=== PATIENT | female | born 1950 | race Caucasian/White ===

== ENCOUNTER 2018-11-21 09:04 | Observation (INO) | payer MEDICARE ==
--- NOTE | 2018-11-20 09:57 | Diagnostic Imaging Report ---
EXAMINATION: CHEST 2 VIEWS INDICATION: Pre-operative COMPARISON: None FINDINGS: LINES/TUBES:None LUNGS:The lungs are well-inflated. No focal consolidation or pulmonary edema. PLEURA:No pleural effusion or pneumothorax. MEDIASTINUM:The cardiomediastinal silhouette appears normal in size and shape. Atherosclerotic calcifications of the thoracic aorta. BONES/SOFT TISSUES:No acute osseous injury. ABDOMEN:No free air under the diaphragm. IMPRESSION: No focal pneumonia or pulmonary edema. Signed by: Puneet Perez MD on 11/20/2018 9:54 AM
[~2018-11-21] VITALS: Ht 157.5 cm; Wt 78.5 kg
[~2018-11-21 09:04] MED LIST: ASPIR 8181 MG PO; ATORVASTATIN CA10 MG PO; AZILECT0.5 MG PO; CARBIDOPA-LEVO1 EACH PO; FLUTICASONE PRO16 GM; GABAPENTIN300 MG PO; LEVETIRACETAM500 MG PO; MELATONIN3 M1 PO; MULTIVITAMINS1 EAC7 PO; OMEPRAZOLE20 MG PO; PROLIA60 MG/1 ML SQ; ROPIVACAINE 246.25 MG, EPINEPHRINE HCL 1:1000 1ML 0.5 MG, CLONIDINE HCL 0.08 MG, KETORO... INJ ONE; TYLENOL ARTHRITIS PO
--- OUTSIDE RECORDS SUMMARY | 2018-11-21 09:07 | XMS REPORT | Continuity of Care Document ---
Author Author [employer] Organization [employer] Address Unknown Phone Unavailable Care Team Providers Care Family Medicine Resident Name Role Phone [employer] Information [facility] Unavailable Unavailable Problems Problem Status Onset Date Classification Date Reported Comments Source VOMITING Active 11/27/2011 [facility] DIZZINESS Active 11/27/2011 [facility] Seizure Active Problem 12/02/2011 [facility] Syncope Active Problem 12/02/2011 [facility] Hallux valgus (acquired), right foot Active Problem 05/11/2017 [facility] Seizure disorder Active Problem 05/11/2017 [facility] Plantar fasciitis Active Problem 05/11/2017 [facility] DIZZINESS AND GIDDINESS Active [facility] Medications Medication Details Route Status Patient Instructions Ordering Provider Order Date Source Keppra 250 mg oral tablet 500 mg, 2 tab, PO, Bedtime, 30 tab, Substitution Allowed, TAB PO Active Mougouris 11/30/2011 [facility] Keppra 250 mg oral tablet 250 mg, 1 tab, PO, QAM, 30 tab, Substitution Allowed, TAB PO Active Mougouris 11/30/2011 [facility] Prilosec OTC 20 mg, Route: PO, Drug form: ECTAB, Daily, Dosing Weight 75.909, kg, Start date: 11/29/11 9:00:00, Duration: 30 day, Stop date: 12/28/11 9:00:00 PO No Longer Active Roas 11/29/2011 [facility] multivitamin with minerals 1 tab, Route: PO, Drug Form: TAB, Dosing Weight 75.909, kg, Daily, Start date: 11/29/11 9:00:00, Duration: 30 day, Stop date: 12/28/11 9:00:00 PO No Longer Active Rosa 11/29/2011 [facility] Vitamin B12 500 microgram, 1 tab, Route: PO, Drug form: TAB, Daily, Dosing Weight 75.909, kg, Start date: 11/29/11 9:00:00, Duration: 30 day, Stop date: 12/28/11 9:00:00 PO No Longer Active Rosa 11/29/2011 [facility] Vitamin D3 1000 intl units oral tablet 1 tab, Route: PO, Drug form: TAB, Daily, Dosing Weight 75.909, kg, Start date: 11/29/11 9:00:00, Duration: 30 day, Stop date: 12/28/11 9:00:00 PO No Longer Active Rosa 11/29/2011 [facility] aspirin 325 mg tablet, enteric coated 325 mg, 1 tab, Route: PO, Drug form: ECTAB, Daily, Dosing Weight 75.909, kg, Start date: 11/29/11 9:00:00, Duration: 30 day, Stop date: 12/28/11 9:00:00 PO No Longer Active Rosa 11/29/2011 [facility] Keppra 250 mg, 1 tab, Route: PO, Drug form: TAB, QAM, Start date: 11/29/11 9:00:00, Duration: 30 day, Stop date: 12/28/11 9:00:00 PO No Longer Active Batsheva 11/29/2011 [facility] Vitamin D3 1,000 IntlUnit, 1 tab, Route: PO, Drug form: TAB, Daily, Start date: 11/29/11 9:00:00, Duration: 30 day, Stop date: 12/28/11 9:00:00 PO No Longer Active Rosa 11/29/2011 [facility] melatonin 3 mg, Route: PO, Drug form: TAB, Bedtime, Dosing Weight 75.909, kg, Start date: 11/28/11 21:00:00, Duration: 30 day, Stop date: 12/27/11 21:00:00 PO No Longer Active Rosa 11/29/2011 [facility] Keppra 500 mg, 2 tab, Route: PO, Drug form: TAB, Bedtime, Start date: 11/28/11 21:00:00, Duration: 30 day, Stop date: 12/27/11 21:00:00 PO No Longer Active Batsheva 11/29/2011 [facility] MELATONIN 3MG PO BEDTIME-PT'S OWN MED MELATONIN 3MG PO BEDTIME-PT'S OWN MED, 3 mg, Drug form: MISC, Route: PO, Bedtime, 11/28/11 21:00:00, Duration: 30 day, Stop date: 12/27/11 21:00:00 PO No Longer Active Rosa 11/29/2011 [facility] acetaminophen 650 mg, 2 tab, Route: PO, Drug form: TAB, Q6H, Dosing Weight 75.909, kg, PRN Pain, Start date: 11/28/11 18:28:00, Duration: 30 day, Stop date: 12/28/11 18:27:00 PO No Longer Active Mougouris 11/28/2011 [facility] Protonix 40 mg, 1 tab, Route: PO, Drug form: ECTAB, Before Dinner, Start date: 11/28/11 16:30:00, Duration: 30 day, Stop date: 12/27/11 16:30:00 PO No Longer Active Rosa 11/28/2011 [facility] influenza virus vaccine, inactivated 0.5 ml, Route: IM, Drug Form: INJ, Start date: 11/28/11 9:00:00, Stop date: 11/28/11 9:00:00 IM No Longer Active SYSTEM 11/28/2011 [facility] atropine 0.5 mg, 1.25 mL, Route: IVP, Drug form: INJ, PRN, Dosing Weight 72.727, kg, PRN Bradycardia, Start date: 11/27/11 22:14:00, Duration: 30 day, Stop date: 12/27/11 22:13:00 IVP No Longer Active Batsheva 11/28/2011 [facility] nitroglycerin 0.4 mg sublingual tablet 0.4 mg, 1 tab, Route: SL, Drug form: TAB, Q5Min, Dosing Weight 72.727, kg, PRN Chest Pain, Start date: 11/27/11 22:14:00, Duration: 30 day, Stop date: 12/27/11 22:13:00 SL No Longer Active Batsheva 11/28/2011 [facility] Saline Flush 0.9% 5 ml, Route: IVP, Drug Form: INJ, Dosing Weight 72.727, kg, PRN, PRN Line Flush, Start date: 11/27/11 21:14:00, Duration: 30 day, Stop date: 12/27/11 21:13:00 IVP No Longer Active Batsheva 11/28/2011 [facility] Sodium Chloride 0.9% IV 1,000 mL 1,000 mL, Rate: 75 ml/hr, Infuse over: 13.3 hr, Route: IV, kg, Total Volume: 1,000, Start date: 11/27/11 21:14:00, Duration: 30 day, Stop date: 12/27/11 21:13:00 IV No Longer Active Batsheva 11/28/2011 [facility] LORAzepam 1 mg, 0.5 mL, Route: IV, Drug form: INJ, Q15Min, Dosing Weight 72.727, kg, PRN Seizure, Start date: 11/27/11 21:14:00, Duration: 30 day, Stop date: 12/27/11 21:13:00 IV No Longer Active Batsheva 11/28/2011 [facility] Zofran 4 mg, 2 mL, Route: IVP, Drug form: INJ, ONCE, Dosing Weight 72.727, kg, Start date: 11/27/11 19:12:00, Stop date: 11/27/11 19:12:00 [facility] melatonin 3 mg oral tablet 3 mg, 1 tab, PO, Bedtime, Substitution Allowed PO Active Rosa 11/27/2011 [facility] vitamin E 400 intl units oral capsule 400 IntlUnit, 1 cap, PO, Daily, Substitution Allowed PO Active 11/27/2011 [facility] Vitamin D3 400 intl units oral capsule 400 IntlUnit, 1 cap, PO, Daily, Substitution Allowed PO Active Rosa 11/27/2011 [facility] Vitamin B12 500 mcg oral tablet 500 microgram, 1 tab, PO, Daily, Substitution Allowed PO Active Rosa 11/27/2011 [facility] Multiple Vitamins with Minerals oral tablet 1 tab, PO, Daily, Substitution Allowed, Maintenance PO Active Rosa 11/27/2011 [facility] aspirin 325 mg tablet, enteric coated 325 mg, 1 tab, PO, Daily, Substitution Allowed PO Active Rosa 11/27/2011 [facility] Prilosec OTC 20 mg oral enteric coated tablet 20 mg, 1 tab, PO, Daily, Substitution Allowed PO Active Rosa 11/27/2011 [facility] LORAzepam 1 mg, 0.5 mL, Route: IVP, Drug form: INJ, ONCE, Dosing Weight 72.727, kg, Priority: STAT, Start date: 11/27/11 15:06:00, Stop date: 11/27/11 15:06:00 IVP No Longer Active [facility] 11/27/2011 [facility] ondansetron 4 mg, 2 mL, Route: IVP, Drug form: INJ, ONCE, Dosing Weight 72.727, kg, Priority: STAT, Start date: 11/27/11 15:06:00, Stop date: 11/27/11 15:06:00 IVP No Longer Active [facility] 11/27/2011 [facility] Sodium Chloride 0.9% IV 1,000 mL 1,000 mL, Rate: 125 ml/hr, Infuse over: 8 hr, Route: IV, kg, Total Volume: 1,000, Start date: 11/27/11 15:06:00, Duration: 30 day, Stop date: 12/27/11 15:05:00 IV No Longer Active [facility] 11/27/2011 [facility] Saline Flush 0.9% 5 ml, Route: IVP, Drug Form: INJ, Dosing Weight 72.727, kg, PRN, PRN Line Flush, Start date: 11/27/11 15:06:00, Duration: 30 day, Stop date: 12/27/11 15:05:00 IVP No Longer Active [facility] 11/27/2011 [facility] Allergies, Adverse Reactions, Alerts Substance Category Reaction Severity Reaction type Status Date Reported Comments Source codeine drug allergy Allergy Active [facility] Immunizations Immunization Date Given Site Status Last Updated Comments Source influenza virus vaccine, inactivated 11/28/2011 completed Russ [facility] Results Order Name Results Value Reference Range Date Interpretation Comments Source CHEMISTRY AGAP 11.8 10.0 - 20.0 11/30/2011 Normal [facility] CHEMISTRY Glucose Lvl 90 70 - 99 11/30/2011 Normal <sup>1</sup>Interpretive Data: Adult reference range values reflect the clinical guidelines
of the [place] [employer]. [facility] CHEMISTRY CO2 27 24 - 32 11/30/2011 Normal [facility] CHEMISTRY Calcium Lvl 8.6 8.5 - 10.5 11/30/2011 Normal [facility] CHEMISTRY Chloride Lvl 109 95 - 109 11/30/2011 Normal [facility] CHEMISTRY Potassium Lvl 3.8 3.5 - 5.1 11/30/2011 Normal [facility] CHEMISTRY Sodium Lvl 144 135 - 145 11/30/2011 Normal [facility] CHEMISTRY BUN 8 7 - 22 11/30/2011 [facility] CHEMISTRY Creatinine Lvl 0.7 0.5 - 1.4 11/30/2011 [facility] HEMATOLOGY Eosinophils 1.7 0.0 - 4.0 11/30/2011 [facility] HEMATOLOGY Basophils 1.1 0.0 - 1.0 11/30/2011 [facility] HEMATOLOGY Lymphocytes # 1.2 1.0 - 5.5 11/30/2011 Normal [facility] HEMATOLOGY Segs-Bands # 3.5 1.5 - 8.1 11/30/2011 [facility] HEMATOLOGY Lymphocytes 22.4 20.0 - 40.0 11/30/2011 [facility] HEMATOLOGY Monocytes 8.1 2.0 - 12.0 11/30/2011 [facility] HEMATOLOGY Segs 66.7 45.0 - 75.0 11/30/2011 [facility] HEMATOLOGY Eosinophils # 0.1 0.0 - 0.5 11/30/2011 [facility] HEMATOLOGY Basophils # 0.1 0.0 - 0.2 11/30/2011 [facility] HEMATOLOGY Monocytes # 0.4 0.0 - 0.8 11/30/2011 [facility] HEMATOLOGY MCHC 33.6 32.0 - 36.0 11/30/2011 [facility] HEMATOLOGY RDW 13.3 11.5 - 14.5 11/30/2011 [facility] HEMATOLOGY MCH 29.7 27.0 - 31.0 11/30/2011 [facility] HEMATOLOGY Platelet 221 133 - 450 11/30/2011 [facility] HEMATOLOGY MPV 8.0 7.4 - 10.4 11/30/2011 [facility] HEMATOLOGY MCV 88.6 81.0 - 99.0 11/30/2011 [facility] HEMATOLOGY Hgb 12.3 12.0 - 16.0 11/30/2011 [facility] HEMATOLOGY Hct 36.7 36.0 - 48.0 11/30/2011 [facility] HEMATOLOGY RBC 4.14 4.20 - 5.40 11/30/2011 L[facility] HEMATOLOGY WBC 5.3 3.7 - 10.4 11/30/2011 [facility] CHEMISTRY Magnesium Lvl 1.9 1.8 - 2.4 11/29/2011 [facility] CHEMISTRY AGAP 13.9 10.0 - 20.0 11/29/2011 [facility] CHEMISTRY BUN 10 7 - 22 11/29/2011 Normal [facility] CHEMISTRY Calcium Lvl 8.0 8.5 - 10.5 11/29/2011 LOW [facility] CHEMISTRY Creatinine Lvl 0.7 0.5 - 1.4 11/29/2011 Normal [facility] CHEMISTRY Sodium Lvl 147 135 - 145 11/29/2011 HI [facility] CHEMISTRY Potassium Lvl 3.9 3.5 - 5.1 11/29/2011 Normal [facility] CHEMISTRY Glucose Lvl 94 70 - 99 11/29/2011 Normal <sup>2</sup>Interpretive Data: Adult reference range values reflect the clinical guidelines
of the [place] [employer]. [facility] CHEMISTRY Chloride Lvl 112 95 - 109 11/29/2011 [facility] CHEMISTRY CO2 25 24 - 32 11/29/2011 Normal [facility] HEMATOLOGY MCHC 33.9 32.0 - 36.0 11/29/2011 Normal [facility] HEMATOLOGY Platelet 216 133 - 450 11/29/2011 Normal [facility] HEMATOLOGY RDW 13.3 11.5 - 14.5 11/29/2011 Normal [facility] HEMATOLOGY MPV 8.3 7.4 - 10.4 11/29/2011 Normal [facility] HEMATOLOGY Hct 36.0 36.0 - 48.0 11/29/2011 Normal [facility] HEMATOLOGY MCH 29.8 27.0 - 31.0 11/29/2011 Normal [facility] HEMATOLOGY MCV 88.1 81.0 - 99.0 11/29/2011 Normal [facility] HEMATOLOGY Hgb 12.2 12.0 - 16.0 11/29/2011 Normal [facility] HEMATOLOGY RBC 4.09 4.20 - 5.40 11/29/2011 LOW [facility] HEMATOLOGY WBC 5.6 3.7 - 10.4 11/29/2011 Normal [facility] HEMATOLOGY Lymphocytes 26.2 20.0 - 40.0 11/29/2011 Normal [facility] HEMATOLOGY Segs 64.6 45.0 - 75.0 11/29/2011 Normal [facility] HEMATOLOGY Basophils # 0.1 0.0 - 0.2 11/29/2011 Normal [facility] HEMATOLOGY Monocytes 7.5 2.0 - 12.0 11/29/2011 Normal [facility] HEMATOLOGY Eosinophils 0.6 0.0 - 4.0 11/29/2011 Normal [facility] HEMATOLOGY Basophils 1.1 0.0 - 1.0 11/29/2011 [facility] HEMATOLOGY Lymphocytes # 1.5 1.0 - 5.5 11/29/2011 Normal [facility] HEMATOLOGY Segs-Bands # 3.6 1.5 - 8.1 11/29/2011 Normal [facility] HEMATOLOGY Eosinophils # 0.0 0.0 - 0.5 11/29/2011 Normal [facility] HEMATOLOGY Monocytes # 0.4 0.0 - 0.8 11/29/2011 Normal [facility] CHEMISTRY TSH 0.387 0.360 - 3.740 11/28/2011 Normal [facility] CHEMISTRY Folate Lvl 19.5 >=3.0 11/28/2011 Normal [facility] CHEMISTRY Vitamin B12 Lvl 1636 254 - 1320 11/28/2011 [facility] URINALYSIS UA Bacteria Many /HPF *ABN* (11/27/2011 18:00:00) None Seen 11/27/2011 ABN [facility] URINALYSIS UA Mucus Few /LPF *NA* (11/27/2011 18:00:00) None Seen 11/27/2011 NA [facility] URINALYSIS UA Leuk Est Negative (11/27/2011 18:00:00) Negative 11/27/2011 Normal [facility] URINALYSIS UA RBC 6 0 - 2 11/27/2011 HI [facility] URINALYSIS UA Blood Negative (11/27/2011 18:00:00) Negative 11/27/2011 Normal [facility] URINALYSIS UA Nitrite Negative (11/27/2011 18:00:00) Negative 11/27/2011 Normal [facility] URINALYSIS UA Ketones Trace mg/dL *ABN* (11/27/2011 18:00:00) Negative 11/27/2011 ABN [facility] URINALYSIS UA Bili Negative *NA* (11/27/2011 18:00:00) Negative 11/27/2011 [facility] URINALYSIS UA Glucose Negative mg/dL *NA* (11/27/2011 18:00:00) Negative 11/27/2011 NA [facility] URINALYSIS UA Urobilinogen 0.1 - 1.0 11/27/2011 [facility] URINALYSIS UA Sq Epi None Seen 11/27/2011 [facility] URINALYSIS UA pH 7.0 5.0 - 8.0 11/27/2011 [facility] URINALYSIS UA Protein Negative mg/dL (11/27/2011 18:00:00) Negative 11/27/2011 Normal [facility] URINALYSIS UA Turbidity Marked *ABN* (11/27/2011 18:00:00) Clear 11/27/2011 AB[facility] URINALYSIS UA Spec Grav 1.009 <=1.030 11/27/2011 [facility] URINALYSIS UA Color Yellow *NA* (11/27/2011 18:00:00) Yellow 11/27/2011 NA [facility] CHEMISTRY CK MB Index 2.3 0.0 - 2.5 11/27/2011 [facility] CHEMISTRY Chloride Lvl 108 95 - 109 11/27/2011 [facility] CHEMISTRY Calcium Lvl 8.9 8.5 - 10.5 11/27/2011 [facility] CHEMISTRY Potassium Lvl 4.1 3.5 - 5.1 11/27/2011 [facility] CHEMISTRY Sodium Lvl 142 135 - 145 11/27/2011 [facility] CHEMISTRY Globulin 3.3 2.0 - 4.0 11/27/2011 [facility] CHEMISTRY A/G Ratio 1.2 0.7 - 1.6 11/27/2011 [facility] CHEMISTRY B/C Ratio 31 6 - 25 11/27/2011 [facility] CHEMISTRY Bili Total 0.4 0.2 - 1.3 11/27/2011 Normal [facility] CHEMISTRY Alk Phos 70 39 - 136 11/27/2011 Normal [facility] CHEMISTRY AGAP 11.1 10.0 - 20.0 11/27/2011 [facility] CHEMISTRY AST 11 0 - 37 11/27/2011 Normal [facility] CHEMISTRY ALT 24 0 - 65 11/27/2011 Normal [facility] CHEMISTRY Albumin Lvl 4.0 3.5 - 5.0 11/27/2011 Normal [facility] CHEMISTRY Total Protein 7.3 6.4 - 8.4 11/27/2011 [facility] CHEMISTRY CO2 27 24 - 32 11/27/2011 Normal [facility] CHEMISTRY BUN 22 7 - 22 11/27/2011 Normal [facility] CHEMISTRY Creatinine Lvl 0.7 0.5 - 1.4 11/27/2011 Normal [facility] CHEMISTRY Glucose Lvl 129 70 - 99 11/27/2011 [facility] <sup>3</sup>Interpretive Data: Adult reference range values reflect the clinical guidelines
of the [place] [employer]. [facility] CHEMISTRY CK MB 0.9 0.5 - 3.6 11/27/2011 Normal [facility] CHEMISTRY Troponin-I <0.02 0.00 - 0.40 11/27/2011 Normal [facility] CHEMISTRY Total CK 39 12 - 191 11/27/2011 Normal [facility] HEMATOLOGY Monocytes 1.4 2.0 - 12.0 11/27/2011 [facility] HEMATOLOGY Eosinophils 0.0 0.0 - 4.0 11/27/2011 Normal [facility] HEMATOLOGY Lymphocytes 4.1 20.0 - 40.0 11/27/2011 LOW [facility] HEMATOLOGY Basophils 0.0 0.0 - 1.0 11/27/2011 Normal [facility] HEMATOLOGY Segs 94.5 45.0 - 75.0 11/27/2011 [facility] HEMATOLOGY Segs-Bands # 8.8 1.5 - 8.1 11/27/2011 [facility] HEMATOLOGY Lymphocytes # 0.4 1.0 - 5.5 11/27/2011 L[facility] HEMATOLOGY Basophils # 0.0 0.0 - 0.2 11/27/2011 Normal [facility] HEMATOLOGY Eosinophils # 0.0 0.0 - 0.5 11/27/2011 Normal [facility] HEMATOLOGY Monocytes # 0.1 0.0 - 0.8 11/27/2011 Normal [facility] HEMATOLOGY WBC 9.4 3.7 - 10.4 11/27/2011 Normal [facility] HEMATOLOGY MCH 29.8 27.0 - 31.0 11/27/2011 Normal [facility] HEMATOLOGY RDW 13.5 11.5 - 14.5 11/27/2011 Normal [facility] HEMATOLOGY MCHC 33.6 32.0 - 36.0 11/27/2011 Normal [facility] HEMATOLOGY MPV 7.9 7.4 - 10.4 11/27/2011 Normal [facility] HEMATOLOGY Platelet 245 133 - 450 11/27/2011 Normal [facility] HEMATOLOGY Hgb 13.6 12.0 - 16.0 11/27/2011 Normal [facility] HEMATOLOGY RBC 4.58 4.20 - 5.40 11/27/2011 Normal [facility] HEMATOLOGY MCV 88.6 81.0 - 99.0 11/27/2011 Normal [facility] HEMATOLOGY Hct 40.6 36.0 - 48.0 11/27/2011 Normal [facility] HEMATOLOGY PTT 25.6 22.9 - 35.8 11/27/2011 Normal <sup>5</sup>Interpretive Data: Heparin Therapeutic Range: 57 - 92 Seconds [facility] HEMATOLOGY PT 12.3 12.0 - 14.7 11/27/2011 Normal [facility] HEMATOLOGY INR 0.89 0.85 - 1.17 11/27/2011 Normal <sup>4</sup>Interpretive Data: RECOMMENDED RANGES FOR PROTIME INR:
2.0-3.0 for most medical and surgical thromboembolic states.
2.5-3.5 for artificial heart valves and recurrent embolism.

INR SHOULD BE USED ONLY FOR PATIENTS ON STABLE ANTICOAGULANT THERAPY. [facility] Pathology Reports No Data Provided for This Section Diagnostic Reports No Data Provided for This Section Consultation Notes No Data Provided for This Section Discharge Summaries No Data Provided for This Section History and Physicals No Data Provided for This Section Vital Signs Vital Sign Value Date Comments Source Heart Rate 73 11/30/2011 [facility] Systolic (mm Hg) 125 11/30/2011 [facility] Temperature Oral (F) 98.1 F 11/30/2011 [facility] Respitory Rate 20 11/30/2011 [facility] Diastolic (mm Hg) 83 11/30/2011 [facility] Diastolic (mm Hg) 71 11/30/2011 [facility] Respitory Rate 20 11/30/2011 [facility] Systolic (mm Hg) 114 11/30/2011 [facility] Temperature Oral (F) 97.8 F 11/30/2011 [facility] Heart Rate 73 11/30/2011 [facility] Respitory Rate 20 11/30/2011 [facility] Systolic (mm Hg) 128 11/30/2011 [facility] Diastolic (mm Hg) 80 11/30/2011 [facility] Heart Rate 68 11/30/2011 [facility] Temperature Oral (F) 98.5 F 11/30/2011 [facility] Weight 75.909 11/28/2011 [facility] Height 68.58 cm 11/28/2011 [facility] Weight 72.727 11/27/2011 [facility] Height 157.48 cm 11/27/2011 [facility] Encounters Location Location Details Encounter Type Encounter Number Reason For Visit Attending Provider ADM Date DC Date Status Source [facility] Inpatient [id number] MAGALIS JAIME 11/27/2011 11/30/2011 Discharged [facility] Procedures No Data Provided for This Section Assessment and Plan No Data Provided for This Section Plan of Care No Data Provided for This Section Social History No Data Provided for This Section Family History No Data Provided for This Section Advance Directives No Data Provided for This Section Functional Status No Data Provided for This Section
--- OUTSIDE RECORDS SUMMARY | 2018-11-21 09:07 | XMS REPORT ---
Author Rafi Lo Organization [employer] Address Unknown Phone Unavailable Care Team Providers Care Waste Water Operator Name Role Phone Rafi Johnson CP Unavailable Allergies No Known Allergies Problems Problem Type Condition Code Onset Dates Condition Status Problem Hallux valgus (acquired), right foot M20.11 Active Problem Seizure disorder G40.909 Active Problem Plantar fasciitis M72.2 Active Medications No Known Medications Results No Known Results Summary Purpose [employer] Submission
--- OUTSIDE RECORDS SUMMARY | 2018-11-21 09:07 | XMS REPORT ---
Author Rafi Lo Organization [employer] Address Unknown Phone Unavailable Care Team Providers Care Harmonic Analyst Name Role Phone Rafi Johnson CP Unavailable Allergies No Known Allergies Problems Problem Type Condition Code Onset Dates Condition Status Problem Hallux valgus (acquired), right foot M20.11 Active Problem Seizure disorder G40.909 Active Problem Plantar fasciitis M72.2 Active Medications No Known Medications Results No Known Results Summary Purpose [employer] Submission
--- OUTSIDE RECORDS SUMMARY | 2018-11-21 09:07 | XMS REPORT ---
Author [facility] Address Unknown Phone Unavailable Care Team Providers Care Family Consumer Scientist Name Role Phone TARA NEGRO Unavailable Unavailable Problems This patient has no known problems. Allergies, Adverse Reactions, Alerts This patient has no known allergies or adverse reactions. Medications This patient has no known medications. Results Test Description Test Time Test Comments Text Results Atomic Results Result Comments CHEST 2 VIEWS 2018-11-20 09:53:00 [facility] [address] [address] Patient Name: MORENA ESCUDERO MR #: [id number] : 1950 Age/Sex: 67/F Req #: [id number] [facility] Physician: Ordered by: TARA NEGRO MD Report #: [id number] Location: OR Room/Bed: Procedure: [id number] DX/CHEST 2 VIEWS Exam Date: Exam Time: REPORT STATUS: Signed EXAMINATION: CHEST 2 VIEWS INDICATION: Pre-operative COMPARISON: None FINDINGS: LINES/TUBES:None LUNGS:The lungs are well- inflated. No focal consolidation or pulmonary edema. PLEURA:No pleural effusion or pneumothorax. MEDIASTINUM:The cardiomediastinal silhouette appears normal in size and shape. Atherosclerotic calcifications of the thoracic aorta. BONES/SOFT TISSUES:No acute osseous injury. ABDOMEN:No free air under the diaphragm. IMPRESSION: No focal pneumonia or pulmonary edema. Signed by: Gaurav Lewis MD on 11/20/2018 9:54 AM Dictated By: GAURAV LEWIS MD 3 Transcribed By: GRACIELA on 11/20/18953 COPY TO: TARA NEGRO MD SCR MAMM BILATERAL ARLYN CAD DIGITAL 2018-07-12 15:58:19 - SCR MAMM BILATERAL ARLYN CAD DIGITALBILATERAL DIGITAL SCREENING MAMMOGRAM 3D/2D WITH CAD: 07/12/2018CLINICAL: Asymptomatic. Digital breast tomosynthesis was performed in addition to routine CC and MLO views. Current mammographic images were evaluated by either a [employer] M-Vu or a [employer] ImageChecker CAD (computer aided detection system). No prior exams were available for comparison. There are sca ttered fibroglandular tissues in both breasts. No suspicious mass, architectural distortion, malignant type calcification, or lymph node abnormality detected. IMPRESSION: NEGATIVEThere is no mammographic evidence of malignancy. Resume annual screening mammography in one year. Luz verdin/aaliyah:07/12/2018 15:58:19 Director Of Vocational Guidance: Leonor ALCOCER, [facility]-FWletter sent: BIRADS 1-2 Normal Mammogram BI-RADS: 1 Negative
--- OUTSIDE RECORDS SUMMARY | 2018-11-21 09:07 | XMS REPORT ---
Author Rafi Lo Organization [employer] Address Unknown Phone Unavailable Care Team Providers Care Fisheries Director Name Role Phone Rafi Johnson CP Unavailable Allergies No Known Allergies Problems Problem Type Condition Code Onset Dates Condition Status Problem Hallux valgus (acquired), right foot M20.11 Active Problem Seizure disorder G40.909 Active Problem Plantar fasciitis M72.2 Active Medications No Known Medications Results No Known Results Summary Purpose [employer] Submission
--- OUTSIDE RECORDS SUMMARY | 2018-11-21 09:07 | XMS REPORT ---
Author Rafi Lo Organization [employer] Address Unknown Phone Unavailable Care Team Providers Care Twisting Machine Operator Name Role Phone Rafi Johnson CP Unavailable Allergies No Known Allergies Problems Problem Type Condition Code Onset Dates Condition Status Problem Hallux valgus (acquired), right foot M20.11 Active Problem Seizure disorder G40.909 Active Problem Plantar fasciitis M72.2 Active Medications No Known Medications Results No Known Results Summary Purpose [employer] Submission
--- OUTSIDE RECORDS SUMMARY | 2018-11-21 09:07 | XMS REPORT | CCD ---
Author Author Auto Generated Organization [facility] Address Unknown Phone Unavailable Care Team Providers Care Spare Hand Carding Name Role Phone Kodak Estrada CP Allergies, Adverse Reactions, Alerts Substance Reaction Status codeine Active Problem List Condition Effective Dates Status Seizure Active Syncope Active Medications Medication Instructions Start Date End Date Status Keppra 250 mg oral 250 mg, 1 tab, PO, QAM, 30 tab, 11/30/2011 Ordered tablet Substitution Allowed, TAB Prilosec OTC 20 mg, Route: PO, Drug form: ECTAB, 11/29/2011 11/28/2011 Discontinued Daily, Dosing Weight 75.909, kg, Start date: 11/29/11 9:00:00, Duration: 30 day, Stop date: 12/28/11 9:00:00 multivitamin with 1 tab, Route: PO, Drug Form: TAB, 11/29/2011 11/30/2011 Discontinued minerals Dosing Weight 75.909, kg, Daily, Start date: 11/29/11 9:00:00, Duration: 30 day, Stop date: 12/28/11 9:00:00 Vitamin B12 500 microgram, 1 tab, Route: PO, 11/29/2011 11/30/2011 Discontinued Drug form: TAB, Daily, Dosing Weight 75.909, kg, Start date: 11/29/11 9:00:00, Duration: 30 day, Stop date: 12/28/11 9:00:00 melatonin 3 mg, Route: PO, Drug form: TAB, 11/28/2011 11/28/2011 Discontinued Bedtime, Dosing Weight 75.909, kg, Start date: 11/28/11 21:00:00, Duration: 30 day, Stop date: 12/27/11 21:00:00 Vitamin D3 1000 intl 1 tab, Route: PO, Drug form: TAB, 11/29/2011 11/28/2011 Discontinued units oral tablet Daily, Dosing Weight 75.909, kg, Start date: 11/29/11 9:00:00, Duration: 30 day, Stop date: 12/28/11 9:00:00 aspirin 325 mg 325 mg, 1 tab, Route: PO, Drug 11/29/2011 11/30/2011 Discontinued tablet, enteric form: ECTAB, Daily, Dosing Weight coated 75.909, kg, Start date: 11/29/11 9:00:00, Duration: 30 day, Stop date: 12/28/11 9:00:00 Saline Flush 0.9% 5 ml, Route: IVP, Drug Form: INJ, 11/27/2011 11/30/2011 Discontinued Dosing Weight 72.727, kg, PRN, PRN Line Flush, Start date: 11/27/11 21:14:00, Duration: 30 day, Stop date: 12/27/11 21:13:00 Sodium Chloride 0.9% 1,000 mL, Rate: 75 ml/hr, Infuse 11/27/2011 11/30/2011 Discontinued IV 1,000 mL over: 13.3 hr, Route: IV, kg, Total Volume: 1,000, Start date: 11/27/11 21:14:00, Duration: 30 day, Stop date: 12/27/11 21:13:00 influenza virus 0.5 ml, Route: IM, Drug Form: INJ, 11/28/2011 11/28/2011 Completed vaccine, inactivated Start date: 11/28/11 9:00:00, Stop date: 11/28/11 9:00:00 LORAzepam 1 mg, 0.5 mL, Route: IV, Drug form: 11/27/2011 11/30/2011 Discontinued INJ, Q15Min, Dosing Weight 72.727, kg, PRN Seizure, Start date: 11/27/11 21:14:00, Duration: 30 day, Stop date: 12/27/11 21:13:00 Keppra 500 mg, 2 tab, Route: PO, Drug 11/28/2011 11/30/2011 Discontinued form: TAB, Bedtime, Start date: 11/28/11 21:00:00, Duration: 30 day, Stop date: 12/27/11 21:00:00 Keppra 250 mg, 1 tab, Route: PO, Drug 11/29/2011 11/30/2011 Discontinued form: TAB, QAM, Start date: 11/29/11 9:00:00, Duration: 30 day, Stop date: 12/28/11 9:00:00 melatonin 3 mg oral 3 mg, 1 tab, PO, Bedtime, 11/27/2011 Ordered tablet Substitution Allowed vitamin E 400 intl 400 IntlUnit, 1 cap, PO, Daily, 11/27/2011 Ordered units oral capsule Substitution Allowed Vitamin D3 400 intl 400 IntlUnit, 1 cap, PO, Daily, 11/27/2011 Ordered units oral capsule Substitution Allowed Vitamin B12 500 mcg 500 microgram, 1 tab, PO, Daily, 11/27/2011 Ordered oral tablet Substitution Allowed aspirin 325 mg 325 mg, 1 tab, PO, Daily, 11/27/2011 Ordered tablet, enteric Substitution Allowed coated Multiple Vitamins 1 tab, PO, Daily, Substitution 11/27/2011 Ordered with Minerals oral Allowed, Maintenance tablet Prilosec OTC 20 mg 20 mg, 1 tab, PO, Daily, 11/27/2011 Ordered oral enteric coated Substitution Allowed tablet acetaminophen 650 mg, 2 tab, Route: PO, Drug 11/28/2011 11/30/2011 Discontinued form: TAB, Q6H, Dosing Weight 75.909, kg, PRN Pain, Start date: 11/28/11 18:28:00, Duration: 30 day, Stop date: 12/28/11 18:27:00 atropine 0.5 mg, 1.25 mL, Route: IVP, Drug 11/27/2011 11/30/2011 Discontinued form: INJ, PRN, Dosing Weight 72.727, kg, PRN Bradycardia, Start date: 11/27/11 22:14:00, Duration: 30 day, Stop date: 12/27/11 22:13:00 nitroglycerin 0.4 mg 0.4 mg, 1 tab, Route: SL, Drug 11/27/2011 11/30/2011 Discontinued sublingual tablet form: TAB, Q5Min, Dosing Weight 72.727, kg, PRN Chest Pain, Start date: 11/27/11 22:14:00, Duration: 30 day, Stop date: 12/27/11 22:13:00 LORAzepam 1 mg, 0.5 mL, Route: IVP, Drug 11/27/2011 11/27/2011 Completed form: INJ, ONCE, Dosing Weight 72.727, kg, Priority: STAT, Start date: 11/27/11 15:06:00, Stop date: 11/27/11 15:06:00 ondansetron 4 mg, 2 mL, Route: IVP, Drug form: 11/27/2011 11/27/2011 Completed INJ, ONCE, Dosing Weight 72.727, kg, Priority: STAT, Start date: 11/27/11 15:06:00, Stop date: 11/27/11 15:06:00 Sodium Chloride 0.9% 1,000 mL, Rate: 125 ml/hr, Infuse 11/27/2011 11/27/2011 Discontinued IV 1,000 mL over: 8 hr, Route: IV, kg, Total Volume: 1,000, Start date: 11/27/11 15:06:00, Duration: 30 day, Stop date: 12/27/11 15:05:00 Saline Flush 0.9% 5 ml, Route: IVP, Drug Form: INJ, 11/27/2011 11/27/2011 Discontinued Dosing Weight 72.727, kg, PRN, PRN Line Flush, Start date: 11/27/11 15:06:00, Duration: 30 day, Stop date: 12/27/11 15:05:00 influenza virus 0.5 ml, Route: IM, Drug Form: INJ, 11/28/2011 11/28/2011 Completed vaccine, inactivated Daily, Start date: 11/28/11 9:00:00, Duration: 1 doses or times, Stop date: 11/28/11 9:00:00 Vitamin D3 1,000 IntlUnit, 1 tab, Route: PO, 11/29/2011 11/30/2011 Discontinued Drug form: TAB, Daily, Start date: 11/29/11 9:00:00, Duration: 30 day, Stop date: 12/28/11 9:00:00 MELATONIN 3MG PO MELATONIN 3MG PO BEDTIME-PT'S OWN 11/28/2011 11/30/2011 Discontinued BEDTIME-PT'S OWN MED MED, 3 mg, Drug form: MISC, Route: PO, Bedtime, 11/28/11 21:00:00, Duration: 30 day, Stop date: 12/27/11 21:00:00 Protonix 40 mg, 1 tab, Route: PO, Drug form: 11/28/2011 11/30/2011 Discontinued ECTAB, Before Dinner, Start date: 11/28/11 16:30:00, Duration: 30 day, Stop date: 12/27/11 16:30:00 Zofran 4 mg, 2 mL, Route: IVP, Drug form: 11/27/2011 11/27/2011 Completed INJ, ONCE, Dosing Weight 72.727, kg, Start date: 11/27/11 19:12:00, Stop date: 11/27/11 19:12:00 Keppra 250 mg oral 500 mg, 2 tab, PO, Bedtime, 30 tab, 11/30/2011 Ordered tablet Substitution Allowed, TAB Immunizations Vaccine Date Status influenza virus vaccine, inactivated 11/28/2011 Auth (Verified) Vital Signs Most recent to oldest [Reference Range]: 1 2 3 Height 68.58 cm (11/27/2011 22:00:00) 157.48 cm (11/27/2011 14:39:00) Temperature Oral [96.4-99.1 DegF] 98.1 DegF (11/30/2011 16:00:00) 97.8 DegF (11/30/2011 12:00:00) 98.5 DegF (11/30/2011 08:00:00) Systolic Blood Pressure [90-140 mmHg] 125 mmHg (11/30/2011 16:00:00) 114 mmHg (11/30/2011 12:00:00) 128 mmHg (11/30/2011 08:00:00) Diastolic Blood Pressure [60-90 mmHg] 83 mmHg (11/30/2011 16:00:00) 71 mmHg (11/30/2011 12:00:00) 80 mmHg (11/30/2011 08:00:00) Respiratory Rate [14-20 BRMIN] 20 BRMIN (11/30/2011 16:00:00) 20 BRMIN (11/30/2011 12:00:00) 20 BRMIN (11/30/2011 08:00:00) Peripheral Pulse Rate [60-100 bpm] 73 bpm (11/30/2011 16:00:00) 73 bpm (11/30/2011 12:00:00) 68 bpm (11/30/2011 08:00:00) Weight 75.909 kg (11/27/2011 22:00:00) 72.727 kg (11/27/2011 14:39:00) Results URINALYSIS Most recent to oldest [Reference Range]: 1 2 3 UA Turbidity [Clear] Marked *ABN* (11/27/2011 18:00:00) UA Color [Yellow] Yellow *NA* (11/27/2011 18:00:00) UA pH [5.0-8.0] 7.0 (11/27/2011 18:00:00) UA Spec Grav [<=1.030] 1.009 (11/27/2011 18:00:00) UA Glucose [Negative mg/dL] Negative mg/dL *NA* (11/27/2011 18:00:00) UA Blood [Negative] Negative (11/27/2011 18:00:00) UA Ketones [Negative mg/dL] Trace mg/dL *ABN* (11/27/2011 18:00:00) UA Protein [Negative mg/dL] Negative mg/dL (11/27/2011 18:00:00) UA Urobilinogen [0.1-1.0 mg/dL] <=1.0 mg/dL *NA* (11/27/2011 18:00:00) UA Bili [Negative] Negative *NA* (11/27/2011 18:00:00) UA Leuk Est [Negative] Negative (11/27/2011 18:00:00) UA Nitrite [Negative] Negative (11/27/2011 18:00:00) UA RBC [0-2 /HPF] 6 /HPF *HI* (11/27/2011 18:00:00) UA Bacteria [None Seen /HPF] Many /HPF *ABN* (11/27/2011 18:00:00) UA Sq Epi None Seen *NA* (11/27/2011 18:00:00) UA Mucus [None Seen /LPF] Few /LPF *NA* (11/27/2011 18:00:00) CHEMISTRY Most recent to oldest [Reference Range]: 1 2 3 Sodium Lvl [135-145 mEq/L] 144 mEq/L (11/30/2011 06:54:00) 147 mEq/L *HI* (11/29/2011 06:18:00) 142 mEq/L (11/27/2011 15:00:00) Potassium Lvl [3.5-5.1 mEq/L] 3.8 mEq/L (11/30/2011 06:54:00) 3.9 mEq/L (11/29/2011 06:18:00) 4.1 mEq/L (11/27/2011 15:00:00) Chloride Lvl [95-109 mEq/L] 109 mEq/L (11/30/2011 06:54:00) 112 mEq/L *HI* (11/29/2011 06:18:00) 108 mEq/L (11/27/2011 15:00:00) CO2 [24-32 mEq/L] 27 mEq/L (11/30/2011 06:54:00) 25 mEq/L (11/29/2011 06:18:00) 27 mEq/L (11/27/2011 15:00:00) AGAP [10.0-20.0 mEq/L] 11.8 mEq/L (11/30/2011 06:54:00) 13.9 mEq/L (11/29/2011 06:18:00) 11.1 mEq/L (11/27/2011 15:00:00) Creatinine Lvl [0.5-1.4 mg/dL] 0.7 mg/dL (11/30/2011 06:54:00) 0.7 mg/dL (11/29/2011 06:18:00) 0.7 mg/dL (11/27/2011 15:00:00) BUN [7-22 mg/dL] 8 mg/dL (11/30/2011 06:54:00) 10 mg/dL (11/29/2011 06:18:00) 22 mg/dL (11/27/2011 15:00:00) B/C Ratio [6-25] 31 *HI* (11/27/2011 15:00:00) Glucose Lvl [70-99 mg/dL] 90 mg/dL 1 (11/30/2011 06:54:00) 94 mg/dL 2 (11/29/2011 06:18:00) 129 mg/dL 3 *HI* (11/27/2011 15:00:00) Total Protein [6.4-8.4 g/dL] 7.3 g/dL (11/27/2011 15:00:00) Albumin Lvl [3.5-5.0 g/dL] 4.0 g/dL (11/27/2011 15:00:00) Globulin [2.0-4.0 g/dL] 3.3 g/dL (11/27/2011 15:00:00) A/G Ratio [0.7-1.6] 1.2 (11/27/2011 15:00:00) Calcium Lvl [8.5-10.5 mg/dL] 8.6 mg/dL (11/30/2011 06:54:00) 8.0 mg/dL *LOW* (11/29/2011 06:18:00) 8.9 mg/dL (11/27/2011 15:00:00) Magnesium Lvl [1.8-2.4 mg/dL] 1.9 mg/dL (11/29/2011 06:18:00) ALT [0-65 unit/L] 24 unit/L (11/27/2011 15:00:00) AST [0-37 unit/L] 11 unit/L (11/27/2011 15:00:00) Alk Phos [39-136 unit/L] 70 unit/L (11/27/2011 15:00:00) Bili Total [0.2-1.3 mg/dL] 0.4 mg/dL (11/27/2011 15:00:00) Total CK [12-191 unit/L] 39 unit/L (11/27/2011 15:00:00) CK MB [0.5-3.6 ng/mL] 0.9 ng/mL (11/27/2011 15:00:00) CK MB Index [0.0-2.5] 2.3 (11/27/2011 15:00:00) Troponin-I [0.00-0.40 ng/mL] <0.02 ng/mL (11/27/2011 15:00:00) Vitamin B12 Lvl [254-1320 pg/mL] 1636 pg/mL *HI* (11/28/2011 10:27:00) Folate Lvl [>=3.0 ng/mL] 19.5 ng/mL (11/28/2011 10:27:00) TSH [0.360-3.740 uIU/mL] 0.387 uIU/mL (11/28/2011 10:27:00) 1Interpretive Data: Adult reference range values reflect the clinical guidelines of the [place] [employer]. 2Interpretive Data: Adult reference range values reflect the clinical guidelines of the [place] [employer]. 3Interpretive Data: Adult reference range values reflect the clinical guidelines of the [place] [employer]. HEMATOLOGY Most recent to oldest [Reference Range]: 1 2 3 WBC [3.7-10.4 K/CMM] 5.3 K/CMM (11/30/2011 06:54:00) 5.6 K/CMM (11/29/2011 06:18:00) 9.4 K/CMM (11/27/2011 15:00:00) RBC [4.20-5.40 M/CMM] 4.14 M/CMM *LOW* (11/30/2011 06:54:00) 4.09 M/CMM *LOW* (11/29/2011 06:18:00) 4.58 M/CMM (11/27/2011 15:00:00) Hgb [12.0-16.0 g/dL] 12.3 g/dL (11/30/2011 06:54:00) 12.2 g/dL (11/29/2011 06:18:00) 13.6 g/dL (11/27/2011 15:00:00) Hct [36.0-48.0 %] 36.7 % (11/30/2011 06:54:00) 36.0 % (11/29/2011 06:18:00) 40.6 % (11/27/2011 15:00:00) MCV [81.0-99.0 fL] 88.6 fL (11/30/2011 06:54:00) 88.1 fL (11/29/2011 06:18:00) 88.6 fL (11/27/2011 15:00:00) MCH [27.0-31.0 pg] 29.7 pg (11/30/2011 06:54:00) 29.8 pg (11/29/2011 06:18:00) 29.8 pg (11/27/2011 15:00:00) MCHC [32.0-36.0 g/dL] 33.6 g/dL (11/30/2011 06:54:00) 33.9 g/dL (11/29/2011 06:18:00) 33.6 g/dL (11/27/2011 15:00:00) RDW [11.5-14.5 %] 13.3 % (11/30/2011 06:54:00) 13.3 % (11/29/2011 06:18:00) 13.5 % (11/27/2011 15:00:00) Platelet [133-450 K/CMM] 221 K/CMM (11/30/2011 06:54:00) 216 K/CMM (11/29/2011 06:18:00) 245 K/CMM (11/27/2011 15:00:00) MPV [7.4-10.4 fL] 8.0 fL (11/30/2011 06:54:00) 8.3 fL (11/29/2011 06:18:00) 7.9 fL (11/27/2011 15:00:00) Segs [45.0-75.0 %] 66.7 % (11/30/2011 06:54:00) 64.6 % (11/29/2011 06:18:00) 94.5 % *HI* (11/27/2011 15:00:00) Lymphocytes [20.0-40.0 %] 22.4 % (11/30/2011 06:54:00) 26.2 % (11/29/2011 06:18:00) 4.1 % *LOW* (11/27/2011 15:00:00) Monocytes [2.0-12.0 %] 8.1 % (11/30/2011 06:54:00) 7.5 % (11/29/2011 06:18:00) 1.4 % *LOW* (11/27/2011 15:00:00) Eosinophils [0.0-4.0 %] 1.7 % (11/30/2011 06:54:00) 0.6 % (11/29/2011 06:18:00) 0.0 % (11/27/2011 15:00:00) Basophils [0.0-1.0 %] 1.1 % *HI* (11/30/2011 06:54:00) 1.1 % *HI* (11/29/2011 06:18:00) 0.0 % (11/27/2011 15:00:00) Segs-Bands # [1.5-8.1 K/CMM] 3.5 K/CMM (11/30/2011 06:54:00) 3.6 K/CMM (11/29/2011 06:18:00) 8.8 K/CMM *HI* (11/27/2011 15:00:00) Lymphocytes # [1.0-5.5 K/CMM] 1.2 K/CMM (11/30/2011 06:54:00) 1.5 K/CMM (11/29/2011 06:18:00) 0.4 K/CMM *LOW* (11/27/2011 15:00:00) Monocytes # [0.0-0.8 K/CMM] 0.4 K/CMM (11/30/2011 06:54:00) 0.4 K/CMM (11/29/2011 06:18:00) 0.1 K/CMM (11/27/2011 15:00:00) Eosinophils # [0.0-0.5 K/CMM] 0.1 K/CMM (11/30/2011 06:54:00) 0.0 K/CMM (11/29/2011 06:18:00) 0.0 K/CMM (11/27/2011 15:00:00) Basophils # [0.0-0.2 K/CMM] 0.1 K/CMM (11/30/2011 06:54:00) 0.1 K/CMM (11/29/2011 06:18:00) 0.0 K/CMM (11/27/2011 15:00:00) PT [12.0-14.7 seconds] 12.3 seconds (11/27/2011 15:00:00) INR [0.85-1.17] 0.89 4 (11/27/2011 15:00:00) PTT [22.9-35.8 seconds] 25.6 seconds 5 (11/27/2011 15:00:00) 4Interpretive Data: RECOMMENDED RANGES FOR PROTIME INR: 2.0-3.0 for most medical and surgical thromboembolic states. 2.5-3.5 for artificial heart valves and recurrent embolism. INR SHOULD BE USED ONLY FOR PATIENTS ON STABLE ANTICOAGULANT THERAPY. 5Interpretive Data: Heparin Therapeutic Range: 57 - 92 Seconds
--- OUTSIDE RECORDS SUMMARY | 2018-11-21 09:07 | XMS REPORT ---
Author Rafi Lo Organization [employer] Address Unknown Phone Unavailable Care Team Providers Care Dessert Cup Machine Feeder Name Role Phone Rafi Johnson CP Unavailable Allergies No Known Allergies Problems Problem Type Condition Code Onset Dates Condition Status Problem Hallux valgus (acquired), right foot M20.11 Active Problem Seizure disorder G40.909 Active Problem Plantar fasciitis M72.2 Active Medications No Known Medications Results No Known Results Summary Purpose [employer] Submission
--- OUTSIDE RECORDS SUMMARY | 2018-11-21 09:07 | XMS REPORT ---
Author Rafi Lo Organization [employer] Address Unknown Phone Unavailable Care Team Providers Care Recep Name Role Phone Rafi Johnson CP Unavailable Allergies No Known Allergies Problems Problem Type Condition Code Onset Dates Condition Status Problem Hallux valgus (acquired), right foot M20.11 Active Problem Seizure disorder G40.909 Active Problem Plantar fasciitis M72.2 Active Medications No Known Medications Results No Known Results Summary Purpose [employer] Submission
[2018-11-21] MEDS ORDERED: DEXAMETHASONE SOD PHOS 10 MG/1 ML VIAL ONE (09:22)
[2018-11-21] MEDS ORDERED: CELECOXIB 200 MG CAP ONE (09:22)
[2018-11-21] MEDS ORDERED: GABAPENTIN 300 MG CAP ONE (09:22)
[2018-11-21] MEDS ORDERED: CEFAZOLIN SOD 1 GM/NS 50ML 100 ML IV ONE (09:23)
[2018-11-21] MEDS ORDERED: TRANEXAMIC ACID 1,000 MG/10 ML ML ONE (10:33)
[2018-11-21] MEDS ORDERED: VANCOMYCIN HCL 1,000 MG ONE (10:33)
[2018-11-21] MEDS ORDERED: SODIUM CHLORIDE 0.9% 500ML 500 ML ONE (10:33)
[2018-11-21] MEDS ORDERED: BACITRACIN 50,000 UNIT VIAL ONE (10:34)
[2018-11-21] MEDS ORDERED: SODIUM CHLORIDE 0.9% 0 ML ONE (10:34)
[2018-11-21] MEDS ORDERED: HYDROCODONE/APAP 7.5MG-325MG 1 EA TAB PO PRN (12:00)
[2018-11-21] MEDS ORDERED: ACETAMINOPHEN 650 MG SUPP PR PRN (12:00)
[2018-11-21] MEDS ORDERED: DIPHENHYDRAMINE HCL INJ 50 MG/ML VIAL IM/IV PRN (12:00)
[2018-11-21] MEDS ORDERED: PROMETHAZINE HCL (IM) 25 MG/ML VIAL INJ PRN (12:00)
[2018-11-21] MEDS ORDERED: DOCUSATE SODIUM 100 MG CAP PO PRN (12:00)
[2018-11-21] MEDS ORDERED: KETOROLAC TROMETHAMINE 30 MG/ML VIAL IV PRN (12:00)
[2018-11-21] MEDS ORDERED: HYDROCODONE/APAP 5MG-325MG TAB PO PRN (12:00)
[2018-11-21] MEDS ORDERED: ONDANSETRON HCL INJ 2MG/ML 2ML 2 MG/ML VIAL IV PRN (12:00)
[2018-11-21] MEDS ORDERED: HYDROMORPHONE 2MG/ML 2 MG/ML ML ONE (12:17)
[2018-11-21] MEDS ORDERED: TRAMADOL HCL 50 MG TAB PO PRN (12:30)
--- NOTE | 2018-11-21 12:45 | NUR ---
Received patient via stretcher from PACU. AAOX3 to time, person, place. Respirations even and unlabored. O2 2LNC. Dressing to Left knee wrapped with LINDA wrap clean, dry, and intact. Oriented patient to room. Instructed to use call light for assistance. Voiced understanding.
--- OUTSIDE RECORDS SUMMARY | 2018-11-21 12:48 | XMS REPORT | Continuity of Care Document ---
Author Author [facility] Organization [facility] Address Unknown Phone Unavailable Care Team Providers Care Argon Tester Name Role Phone Little1 Information [facility] Unavailable Unavailable Problems Problem Status Onset Date Classification Date Reported Comments Source VOMITING Active 11/27/2011 [facility] DIZZINESS Active 11/27/2011 [facility] Seizure Active Problem 12/02/2011 [facility] Syncope Active Problem 12/02/2011 [facility] Hallux valgus (acquired), right foot Active Problem 05/11/2017 [facility] Seizure disorder Active Problem 05/11/2017 [facility] Plantar fasciitis Active Problem 05/11/2017 [facility] DIZZINESS AND GIDDINESS Active [facility] Medications Medication Details Route Status Patient Instructions Ordering Provider Order Date Source Keppra 250 mg oral tablet 500 mg, 2 tab, PO, Bedtime, 30 tab, Substitution Allowed, TAB PO Active Mougouris 11/30/2011 [facility] Keppra 250 mg oral tablet 250 mg, 1 tab, PO, QAM, 30 tab, Substitution Allowed, TAB PO Active Mougouris 11/30/2011 [facility] Prilosec OTC 20 mg, Route: PO, Drug form: ECTAB, Daily, Dosing Weight 75.909, kg, Start date: 11/29/11 9:00:00, Duration: 30 day, Stop date: 12/28/11 9:00:00 PO No Longer Active Rosa 11/29/2011 [facility] multivitamin with minerals 1 tab, Route: PO, Drug Form: TAB, Dosing Weight 75.909, kg, Daily, Start date: 11/29/11 9:00:00, Duration: 30 day, Stop date: 12/28/11 9:00:00 PO No Longer Active Rosa 11/29/2011 [facility] Vitamin B12 500 microgram, 1 tab, Route: PO, Drug form: TAB, Daily, Dosing Weight 75.909, kg, Start date: 11/29/11 9:00:00, Duration: 30 day, Stop date: 12/28/11 9:00:00 PO No Longer Active Rosa 11/29/2011 [facility] Vitamin D3 1000 intl units oral tablet 1 tab, Route: PO, Drug form: TAB, Daily, Dosing Weight 75.909, kg, Start date: 11/29/11 9:00:00, Duration: 30 day, Stop date: 12/28/11 9:00:00 PO No Longer Active Rosa 11/29/2011 [facility] aspirin 325 mg tablet, enteric coated 325 mg, 1 tab, Route: PO, Drug form: ECTAB, Daily, Dosing Weight 75.909, kg, Start date: 11/29/11 9:00:00, Duration: 30 day, Stop date: 12/28/11 9:00:00 PO No Longer Active Rosa 11/29/2011 [facility] Keppra 250 mg, 1 tab, Route: PO, Drug form: TAB, QAM, Start date: 11/29/11 9:00:00, Duration: 30 day, Stop date: 12/28/11 9:00:00 PO No Longer Active Batsheva 11/29/2011 [facility] Vitamin D3 1,000 IntlUnit, 1 tab, Route: PO, Drug form: TAB, Daily, Start date: 11/29/11 9:00:00, Duration: 30 day, Stop date: 12/28/11 9:00:00 PO No Longer Active Rosa 11/29/2011 [facility] melatonin 3 mg, Route: PO, Drug form: TAB, Bedtime, Dosing Weight 75.909, kg, Start date: 11/28/11 21:00:00, Duration: 30 day, Stop date: 12/27/11 21:00:00 PO No Longer Active Rosa 11/29/2011 [facility] Keppra 500 mg, 2 tab, Route: PO, Drug form: TAB, Bedtime, Start date: 11/28/11 21:00:00, Duration: 30 day, Stop date: 12/27/11 21:00:00 PO No Longer Active Batsheva 11/29/2011 [facility] MELATONIN 3MG PO BEDTIME-PT'S OWN MED MELATONIN 3MG PO BEDTIME-PT'S OWN MED, 3 mg, Drug form: MISC, Route: PO, Bedtime, 11/28/11 21:00:00, Duration: 30 day, Stop date: 12/27/11 21:00:00 PO No Longer Active Rosa 11/29/2011 [facility] acetaminophen 650 mg, 2 tab, Route: PO, Drug form: TAB, Q6H, Dosing Weight 75.909, kg, PRN Pain, Start date: 11/28/11 18:28:00, Duration: 30 day, Stop date: 12/28/11 18:27:00 PO No Longer Active Mougouris 11/28/2011 [facility] Protonix 40 mg, 1 tab, Route: PO, Drug form: ECTAB, Before Dinner, Start date: 11/28/11 16:30:00, Duration: 30 day, Stop date: 12/27/11 16:30:00 PO No Longer Active Rosa 11/28/2011 [facility] influenza virus vaccine, inactivated 0.5 ml, Route: IM, Drug Form: INJ, Start date: 11/28/11 9:00:00, Stop date: 11/28/11 9:00:00 IM No Longer Active SYSTEM 11/28/2011 [facility] atropine 0.5 mg, 1.25 mL, Route: IVP, Drug form: INJ, PRN, Dosing Weight 72.727, kg, PRN Bradycardia, Start date: 11/27/11 22:14:00, Duration: 30 day, Stop date: 12/27/11 22:13:00 IVP No Longer Active Batsheva 11/28/2011 [facility] nitroglycerin 0.4 mg sublingual tablet 0.4 mg, 1 tab, Route: SL, Drug form: TAB, Q5Min, Dosing Weight 72.727, kg, PRN Chest Pain, Start date: 11/27/11 22:14:00, Duration: 30 day, Stop date: 12/27/11 22:13:00 SL No Longer Active Batsheva 11/28/2011 [facility] Saline Flush 0.9% 5 ml, Route: IVP, Drug Form: INJ, Dosing Weight 72.727, kg, PRN, PRN Line Flush, Start date: 11/27/11 21:14:00, Duration: 30 day, Stop date: 12/27/11 21:13:00 IVP No Longer Active Batsheva 11/28/2011 [facility] Sodium Chloride 0.9% IV 1,000 mL 1,000 mL, Rate: 75 ml/hr, Infuse over: 13.3 hr, Route: IV, kg, Total Volume: 1,000, Start date: 11/27/11 21:14:00, Duration: 30 day, Stop date: 12/27/11 21:13:00 IV No Longer Active Batsheva 11/28/2011 [facility] LORAzepam 1 mg, 0.5 mL, Route: IV, Drug form: INJ, Q15Min, Dosing Weight 72.727, kg, PRN Seizure, Start date: 11/27/11 21:14:00, Duration: 30 day, Stop date: 12/27/11 21:13:00 IV No Longer Active Batsheva 11/28/2011 [facility] Zofran 4 mg, 2 mL, Route: IVP, Drug form: INJ, ONCE, Dosing Weight 72.727, kg, Start date: 11/27/11 19:12:00, Stop date: 11/27/11 19:12:00 [facility] melatonin 3 mg oral tablet 3 mg, 1 tab, PO, Bedtime, Substitution Allowed PO Active Rosa 11/27/2011 [facility] vitamin E 400 intl units oral capsule 400 IntlUnit, 1 cap, PO, Daily, Substitution Allowed PO Active 11/27/2011 [facility] Vitamin D3 400 intl units oral capsule 400 IntlUnit, 1 cap, PO, Daily, Substitution Allowed PO Active Rosa 11/27/2011 [facility] Vitamin B12 500 mcg oral tablet 500 microgram, 1 tab, PO, Daily, Substitution Allowed PO Active Rosa 11/27/2011 [facility] Multiple Vitamins with Minerals oral tablet 1 tab, PO, Daily, Substitution Allowed, Maintenance PO Active Rosa 11/27/2011 [facility] aspirin 325 mg tablet, enteric coated 325 mg, 1 tab, PO, Daily, Substitution Allowed PO Active Rosa 11/27/2011 [facility] Prilosec OTC 20 mg oral enteric coated tablet 20 mg, 1 tab, PO, Daily, Substitution Allowed PO Active Rosa 11/27/2011 [facility] LORAzepam 1 mg, 0.5 mL, Route: IVP, Drug form: INJ, ONCE, Dosing Weight 72.727, kg, Priority: STAT, Start date: 11/27/11 15:06:00, Stop date: 11/27/11 15:06:00 IVP No Longer Active [facility] 11/27/2011 [facility] ondansetron 4 mg, 2 mL, Route: IVP, Drug form: INJ, ONCE, Dosing Weight 72.727, kg, Priority: STAT, Start date: 11/27/11 15:06:00, Stop date: 11/27/11 15:06:00 IVP No Longer Active [facility] 11/27/2011 [facility] Sodium Chloride 0.9% IV 1,000 mL 1,000 mL, Rate: 125 ml/hr, Infuse over: 8 hr, Route: IV, kg, Total Volume: 1,000, Start date: 11/27/11 15:06:00, Duration: 30 day, Stop date: 12/27/11 15:05:00 IV No Longer Active [facility] 11/27/2011 [facility] Saline Flush 0.9% 5 ml, Route: IVP, Drug Form: INJ, Dosing Weight 72.727, kg, PRN, PRN Line Flush, Start date: 11/27/11 15:06:00, Duration: 30 day, Stop date: 12/27/11 15:05:00 IVP No Longer Active [facility] 11/27/2011 [facility] Allergies, Adverse Reactions, Alerts Substance Category Reaction Severity Reaction type Status Date Reported Comments Source codeine drug allergy Allergy Active [facility] Immunizations Immunization Date Given Site Status Last Updated Comments Source influenza virus vaccine, inactivated 11/28/2011 completed Russ [facility] Results Order Name Results Value Reference Range Date Interpretation Comments Source CHEMISTRY AGAP 11.8 10.0 - 20.0 11/30/2011 Normal [facility] CHEMISTRY Glucose Lvl 90 70 - 99 11/30/2011 Normal <sup>1</sup>Interpretive Data: Adult reference range values reflect the clinical guidelines
of the [place] [employer]. [facility] CHEMISTRY CO2 27 24 - 32 11/30/2011 Normal [facility] CHEMISTRY Calcium Lvl 8.6 8.5 - 10.5 11/30/2011 Normal [facility] CHEMISTRY Chloride Lvl 109 95 - 109 11/30/2011 Normal [facility] CHEMISTRY Potassium Lvl 3.8 3.5 - 5.1 11/30/2011 Normal [facility] CHEMISTRY Sodium Lvl 144 135 - 145 [...] Lvl 8.0 8.5 - 10.5 11/29/2011 LOW [facility] CHEMISTRY Creatinine Lvl 0.7 0.5 - 1.4 11/29/2011 Normal [facility] CHEMISTRY Sodium Lvl 147 135 - 145 11/29/2011 [place] [facility] CHEMISTRY Potassium Lvl 3.9 3.5 - 5.1 11/29/2011 Normal [facility] CHEMISTRY Glucose Lvl 94 70 - 99 11/29/2011 Normal <sup>2</sup>Interpretive Data: Adult reference range values reflect the clinical guidelines
of the [place] [employer]. [facility] CHEMISTRY Chloride Lvl 112 95 - 109 11/29/2011 [facility] CHEMISTRY CO2 25 24 - 32 11/29/2011 Normal [facility] HEMATOLOGY MCHC 33.9 32.0 - 36.0 11/29/2011 Normal [facility] HEMATOLOGY Platelet 216 133 - 450 11/29/2011 Normal [facility] HEMATOLOGY RDW 13.3 11.5 - 14.5 11/29/2011 Normal [facility] HEMATOLOGY MPV 8.3 7.4 - 10.4 11/29/2011 Normal [facility] HEMATOLOGY Hct 36.0 36.0 - 48.0 11/29/2011 Normal [facility] HEMATOLOGY MCH 29.8 27.0 - 31.0 11/29/2011 Normal [facility] HEMATOLOGY MCV 88.1 81.0 - 99.0 11/29/2011 Normal [facility] HEMATOLOGY Hgb 12.2 12.0 - 16.0 11/29/2011 Normal [facility] HEMATOLOGY RBC 4.09 4.20 - 5.40 11/29/2011 LOW [facility] HEMATOLOGY WBC 5.6 3.7 - 10.4 11/29/2011 Normal [facility] HEMATOLOGY Lymphocytes 26.2 20.0 - 40.0 11/29/2011 Normal [facility] HEMATOLOGY Segs 64.6 45.0 - 75.0 11/29/2011 Normal [facility] HEMATOLOGY Basophils # 0.1 0.0 - 0.2 11/29/2011 Normal [facility] HEMATOLOGY Monocytes 7.5 2.0 - 12.0 11/29/2011 Normal [facility] HEMATOLOGY Eosinophils 0.6 0.0 - 4.0 11/29/2011 Normal [facility] HEMATOLOGY Basophils 1.1 0.0 - 1.0 11/29/2011 [facility] HEMATOLOGY Lymphocytes # 1.5 1.0 - 5.5 11/29/2011 Normal [facility] HEMATOLOGY Segs-Bands # 3.6 1.5 - 8.1 11/29/2011 Normal [facility] HEMATOLOGY Eosinophils # 0.0 0.0 - 0.5 11/29/2011 Normal [facility] HEMATOLOGY Monocytes # 0.4 0.0 - 0.8 11/29/2011 Normal [facility] CHEMISTRY TSH 0.387 0.360 - 3.740 11/28/2011 Normal [facility] CHEMISTRY Folate Lvl 19.5 >=3.0 11/28/2011 Normal [facility] CHEMISTRY Vitamin B12 Lvl 1636 254 - 1320 11/28/2011 [facility] URINALYSIS UA Bacteria Many /HPF *ABN* (11/27/2011 18:00:00) None Seen 11/27/2011 ABN [facility] URINALYSIS UA Mucus Few /LPF *NA* (11/27/2011 18:00:00) None Seen 11/27/2011 NA [facility] URINALYSIS UA Leuk Est Negative (11/27/2011 18:00:00) Negative 11/27/2011 Normal [facility] URINALYSIS UA RBC 6 0 - 2 11/27/2011 HI [facility] URINALYSIS UA Blood Negative (11/27/2011 18:00:00) Negative 11/27/2011 Normal [facility] URINALYSIS UA Nitrite Negative (11/27/2011 18:00:00) Negative 11/27/2011 Normal [facility] URINALYSIS UA Ketones Trace mg/dL *ABN* (11/27/2011 18:00:00) Negative 11/27/2011 ABN [facility] URINALYSIS UA Bili Negative *NA* (11/27/2011 18:00:00) Negative 11/27/2011 [facility] URINALYSIS UA Glucose Negative mg/dL *NA* (11/27/2011 18:00:00) Negative 11/27/2011 NA [facility] URINALYSIS UA Urobilinogen 0.1 - 1.0 11/27/2011 NA [facility] URINALYSIS UA Sq Epi None Seen 11/27/2011 [facility] URINALYSIS UA pH 7.0 5.0 - 8.0 11/27/2011 Normal [facility] URINALYSIS UA Protein Negative mg/dL (11/27/2011 18:00:00) Negative 11/27/2011 Normal [facility] URINALYSIS UA Turbidity Marked *ABN* (11/27/2011 18:00:00) Clear 11/27/2011 ABN [facility] URINALYSIS UA Spec Grav 1.009 <=1.030 11/27/2011 Normal [facility] URINALYSIS UA Color Yellow *NA* (11/27/2011 18:00:00) Yellow 11/27/2011 NA [facility] CHEMISTRY CK MB Index 2.3 0.0 - [...] Total 0.4 0.2 - 1.3 11/27/2011 Normal [facility] CHEMISTRY Alk Phos 70 39 - 136 11/27/2011 Normal [facility] CHEMISTRY AGAP 11.1 10.0 - 20.0 11/27/2011 Normal [facility] CHEMISTRY AST 11 0 - 37 11/27/2011 Normal [facility] CHEMISTRY ALT 24 0 - 65 11/27/2011 Normal [facility] CHEMISTRY Albumin Lvl 4.0 3.5 - 5.0 11/27/2011 Normal [facility] CHEMISTRY Total Protein 7.3 6.4 - 8.4 11/27/2011 Normal [facility] CHEMISTRY CO2 27 24 - 32 11/27/2011 Normal [facility] CHEMISTRY BUN 22 7 - 22 11/27/2011 Normal [facility] CHEMISTRY Creatinine Lvl 0.7 0.5 - 1.4 11/27/2011 Normal [facility] CHEMISTRY Glucose Lvl 129 70 - 99 11/27/2011 [facility] <sup>3</sup>Interpretive Data: Adult reference range values reflect the clinical guidelines
of the [place] [employer]. [facility] CHEMISTRY CK MB 0.9 0.5 - 3.6 11/27/2011 Normal [facility] CHEMISTRY Troponin-I <0.02 0.00 - 0.40 11/27/2011 Normal [facility] CHEMISTRY Total CK 39 12 - 191 11/27/2011 Normal [facility] HEMATOLOGY Monocytes 1.4 2.0 - 12.0 11/27/2011 LOW [facility] HEMATOLOGY Eosinophils 0.0 0.0 - 4.0 11/27/2011 Normal [facility] HEMATOLOGY Lymphocytes 4.1 20.0 - 40.0 11/27/2011 LOW [facility] HEMATOLOGY Basophils 0.0 0.0 - 1.0 11/27/2011 Normal [facility] HEMATOLOGY Segs 94.5 45.0 - 75.0 11/27/2011 [facility] HEMATOLOGY Segs-Bands # 8.8 1.5 - 8.1 11/27/2011 [facility] HEMATOLOGY Lymphocytes # 0.4 1.0 - 5.5 11/27/2011 LOW [facility] HEMATOLOGY Basophils # 0.0 0.0 - 0.2 11/27/2011 Normal [facility] HEMATOLOGY Eosinophils # 0.0 0.0 - 0.5 11/27/2011 Normal [facility] HEMATOLOGY Monocytes # 0.1 0.0 - 0.8 11/27/2011 Normal [facility] HEMATOLOGY WBC 9.4 3.7 - 10.4 11/27/2011 Normal [facility] HEMATOLOGY MCH 29.8 27.0 - 31.0 11/27/2011 Normal [facility] HEMATOLOGY RDW 13.5 11.5 - 14.5 11/27/2011 Normal [facility] HEMATOLOGY MCHC 33.6 32.0 - 36.0 11/27/2011 Normal [facility] HEMATOLOGY MPV 7.9 7.4 - 10.4 11/27/2011 Normal [facility] HEMATOLOGY Platelet 245 133 - 450 11/27/2011 Normal [facility] HEMATOLOGY Hgb 13.6 12.0 - 16.0 11/27/2011 Normal [facility] HEMATOLOGY RBC 4.58 4.20 - 5.40 11/27/2011 Normal [facility] HEMATOLOGY MCV 88.6 81.0 - 99.0 11/27/2011 Normal [facility] HEMATOLOGY Hct 40.6 36.0 - 48.0 11/27/2011 Normal [facility] HEMATOLOGY PTT 25.6 22.9 - 35.8 11/27/2011 Normal <sup>5</sup>Interpretive Data: Heparin Therapeutic Range: 57 - 92 Seconds [facility] HEMATOLOGY PT 12.3 12.0 - 14.7 11/27/2011 Normal [facility] HEMATOLOGY INR 0.89 0.85 - 1.17 11/27/2011 Normal <sup>4</sup>Interpretive Data: RECOMMENDED RANGES FOR PROTIME INR:
2.0-3.0 for most medical and surgical thromboembolic states.
2.5-3.5 for artificial heart valves and recurrent embolism.

INR SHOULD BE USED ONLY FOR PATIENTS ON STABLE ANTICOAGULANT THERAPY. [facility] Pathology Reports No Data Provided for This Section Diagnostic Reports No Data Provided for This Section Consultation Notes No Data Provided for This Section Discharge Summaries No Data Provided for This Section History and Physicals No Data Provided for This Section Vital Signs Vital Sign Value Date Comments Source Heart Rate 73 11/30/2011 [facility] Systolic (mm Hg) 125 11/30/2011 [facility] Temperature Oral (F) 98.1 F 11/30/2011 [facility] Respitory Rate 20 11/30/2011 [facility] Diastolic (mm Hg) 83 11/30/2011 [facility] Diastolic (mm Hg) 71 11/30/2011 [facility] Respitory Rate 20 11/30/2011 [facility] Systolic (mm Hg) 114 11/30/2011 [facility] Temperature Oral (F) 97.8 F 11/30/2011 [facility] Heart Rate 73 11/30/2011 [facility] Respitory Rate 20 11/30/2011 [facility] Systolic (mm Hg) 128 11/30/2011 [facility] Diastolic (mm Hg) 80 11/30/2011 [facility] Heart Rate 68 11/30/2011 [facility] Temperature Oral (F) 98.5 F 11/30/2011 [facility] Weight 75.909 11/28/2011 [facility] Height 68.58 cm 11/28/2011 [facility] Weight 72.727 11/27/2011 [facility] Height 157.48 cm 11/27/2011 [facility] Encounters Location Location Details Encounter Type Encounter Number Reason For Visit Attending Provider ADM Date DC Date Status Source [facility] Inpatient [id number] MAGALIS JAIME 11/27/2011 11/30/2011 Discharged [facility] Procedures No Data Provided for This Section [...]
[2018-11-21 12:58] VITALS: BP 139/69
[2018-11-21 13:15] VITALS: BP 139/69
[2018-11-21] MEDS: ACETAMINOPHEN 1000 MG/100 ML IV SCH ×3 (13:18→23:55)
[2018-11-21] MEDS: SODIUM CHLORIDE 0.9% 1000ML 1,000 ML IV SCH ×2 (13:18→21:54)
[2018-11-21 13:20] VITALS: BP 139/69
--- NOTE | 2018-11-21 13:59 | Diagnostic Imaging Report ---
EXAMINATION: KNEE LEFT 1-2 VIEWS INDICATION: Postoperative COMPARISON: None FINDINGS: Portable AP and lateral radiographs of the left knee demonstrate immediate postoperative changes of left total knee replacement. No unexpected fracture. Alignment is anatomic. Hardware is intact. Postoperative subcutaneous emphysema and surgical skin davin in place. IMPRESSION: Anatomic alignment status post left total knee replacement. Signed by: Puneet Perez MD on 11/21/2018 1:55 PM
--- NOTE | 2018-11-21 14:05 | NUR ---
Visit made by the Spiritual Care Department Pastoral Visitor, Meenu Taylor. Pt sleeping soundly and no family present. Pastoral Visitor left a card describing availability of associate professor of history and instructions on how to contact a associate professor of history. BELLE BELTRAN Knife Cutter Spiritual Care Department O: [phone] Pager: [phone] ([phone] number calling from)
[2018-11-21] MEDS: CELECOXIB 100 MG CAP PO SCH (15:31)
[2018-11-21] MEDS: LEVETIRACETAM 500 MG TAB PO SCH ×2 (15:31→21:00)
[2018-11-21] MEDS: ASPIRIN 325 MG TAB PO SCH (15:31)
[2018-11-21] MEDS: GABAPENTIN 300 MG CAP PO SCH ×2 (15:31→21:09)
[2018-11-21 16:50] VITALS: BP 140/81
[2018-11-21] MEDS: CEFAZOLIN SOD 1 GM/NS 50ML 50 ML IV SCH (16:50)
[2018-11-21] MEDS ORDERED: CARBIDOPA/LEVODOPA 10/100 TAB PO SCH (17:00)
[2018-11-21] MEDS ORDERED: FENTANYL CITRATE/PF 100MCG/2 ML INJ ONE (17:04)
[2018-11-21] MEDS ORDERED: MIDAZOLAM HCL 2 MG/2 ML VIAL ONE (17:04)
[2018-11-21] MEDS ORDERED: ROPIVACAINE 0.5% 5 MG/ML 30 ML SDV ONE (17:08)
--- NOTE | 2018-11-21 18:00 | NUR ---
CPM 45. Tolerating well
[2018-11-21] MEDS ORDERED: SEVOFLURANE INHAL SOLN 250 ML PEN BTL ONE ×2 (18:39)
[2018-11-21] MEDS ORDERED: PROPOFOL IV EMULSION 10 MG/ML 20 ML VIAL ONE ×2 (18:39)
[2018-11-21] MEDS ORDERED: ONDANSETRON HCL INJ 2MG/ML 2ML 2 MG/ML VIAL ONE ×2 (18:39)
[2018-11-21] MEDS ORDERED: LIDOCAINE HCL 2% LOCAL INJ 5 ML SDV VIAL INJ ONE ×2 (18:39)
--- NOTE | 2018-11-21 18:41 | Operative Report ---
DATE OF PROCEDURE: 11/21/2018 SURGEON: Ascencion Bruce MD [facility] [place]: Raúl Hubbard PA-C. PREOPERATIVE DIAGNOSIS: Osteoarthritis left knee. POSTOPERATIVE DIAGNOSIS: Osteoarthritis left knee. PROCEDURE: Left total knee arthroplasty. INDICATIONS: The patient is a 67-year-old lady, who has advanced osteoarthritis of her left knee. She has failed conservative management and would like to proceed with a left total knee replacement. The risks and benefits of the surgery have been discussed. She states she understands and wishes to proceed. PROCEDURE IN DETAIL: The patient was brought to the operating room and placed under general anesthetic. She received prophylactic antibiotics, a regional block and tranexamic acid in the holding area. Her left lower extremity was prepped and draped in a sterile manner. A preoperative time-out was performed. The extremity was exsanguinated and a proximal tourniquet was inflated to 300 mmHg. An anterior approach with a medial parapatellar arthrotomy was performed. Minimal but clear synovial fluid was removed from the joint. Soft tissue releases were performed to bring the knee up into flexion with the patella everted. Meniscal remnants and marginal osteophytes were removed. The cruciate ligaments were removed. A Gregorio and NephDeligic knee system was used. An extra-articular alignment guide was used to resect the proximal tibia. The posterior slope was dialed in to match the existing slope. The tibial base plate was noted to be a size #3. The central fin punch was impacted and attention was directed towards the distal femur. An intramedullary cutting guide was used to resect the distal femur in 6 degrees of valgus and rotation referencing off a combination of landmarks including Whitesides line, the epicondylar axis and the posterior condyles. The femoral component was a size #4. The anterior and posterior cuts were made. A trial reduction was performed. A 9 mm ultracongruent tibial insert provided appropriate soft tissue balancing in flexion and extension. The patella was resurfaced with a 29 mm x 7.5 mm patellar button. The thickness was checked before and after and was right around 20 mm. Patellar tracking was concentric. The trial implants were removed. A 100 mL premixed pericapsular SHANNAN injection was placed into the surrounding soft tissue. The knee was thoroughly irrigated with a shower tip pulsatile lavage. All bone cuts had been irrigated with a diluted mixture of polymyxin and vancomycin spray. The components were cemented into place using a single mix of Palacos cement preloaded with antibiotics. Care was taken to remove extravasated cement. The wound was further irrigated while the cement cured. The arthrotomy was then closed with interrupted Ethibond stitches. The knee was put through flexion and extension to ensure a secure closure. The skin was closed with subcuticular Vicryl and davin. A sterile bandage was applied. The patient was extubated and transported to the recovery room in stable condition. Blood loss was minimal. All needle and sponge counts were correct. Ascencion Bruce MD DR/TRI /[id number]
--- NOTE | 2018-11-21 19:04 | NUR ---
WALKING ROUNDS PERFORMED, RECEIVED PT LAYING SEMI FOWLERS IN BED, AAOX3, RR EVEN AND NON-LABORED, ON ROOM AIR. NO S/SX OF DISTESS NOTED. DRESSING TO (L) KNEE NOTED TO BE CDI. LEFT PT LAYING SEMI FOWLERS IN BED, BED IN LOW LOCKED POSITION, SIDE RAILS UPX2, CALL LIGHT AND PHONE WITHIN REACH.
--- NOTE | 2018-11-21 19:10 | NUR ---
Report given to oncoming nurse of patient's status. Taken off CPM machine. No s/s of acute distress noted. Dressing to left knee clean, dry, and intact. Side rails upx2, call light within reach, at bedside.
[2018-11-21 20:00] VITALS: BP 129/80
[2018-11-21 21:00] VITALS: BP 129/80
[2018-11-21] MEDS ORDERED: ZOLPIDEM TARTRATE 5 MG TAB PO PRN (21:00)
[2018-11-21] MEDS ORDERED: MELATONIN 3 MG TAB PO SCH (21:00)
--- NOTE | 2018-11-21 21:00 | NUR ---
APPLIED PUREWICK TO PATIENT. PT REPORTS UNABLE TO STAY ON CPM OR DO ANYTHING BECAUSE SHE IS URINATING EVERY 30 MINUTES. PT REPORTS SHE STILL CANT FEEL (L) LEG DUE TO BLOCK, PT WILL START AMBULATING ONCE BLOCK IS WEARING OFF.
[2018-11-22] VITALS: BP 126/66
[2018-11-22] MEDS: CEFAZOLIN SOD 1 GM/NS 50ML 50 ML IV SCH ×2 (01:33→08:59)
[2018-11-22] MEDS: ACETAMINOPHEN 1000 MG/100 ML IV SCH (01:33)
[2018-11-22 04:00] VITALS: BP 127/62
[2018-11-22] MEDS: LEVETIRACETAM 500 MG TAB PO SCH ×2 (06:12→07:30)
[2018-11-22] MEDS: CARBIDOPA/LEVODOPA 10/100 TAB PO SCH ×2 (06:13→07:30)
[2018-11-22] MEDS: GABAPENTIN 300 MG CAP PO SCH ×2 (06:13→07:30)
--- NOTE | 2018-11-22 07:16 | NUR ---
report given to day nurse. patient is resting comfortably in bed. bed is in lowest position and call light is within reach.
--- NOTE | 2018-11-22 07:26 | NUR ---
RECEIVED PATIENT RESTING IN BED NO S/S OF DISTRESS. BED LOW, WHEELS LOCKED, SIDE RAILS X2. CALL LIGHT IN REACH WILL CONTINUE TO MONITOR PATIENT.
[2018-11-22 07:52] VITALS: BP 110/66
[2018-11-22] MEDS: ASPIRIN 325 MG TAB PO SCH (08:59)
[2018-11-22] MEDS: CELECOXIB 100 MG CAP PO SCH (08:59)
[2018-11-22] MEDS ORDERED: ATORVASTATIN 10 MG TAB PO SCH (09:00)
[2018-11-22] MEDS ORDERED: AZILECT 0.5 MG PO SCH (09:00)
[2018-11-22] MEDS ORDERED: [UNRECOGNIZED DRUG - OTHER] PO SCH (09:00)
[2018-11-22 09:15] LABS: HEMATOCRIT 33.6 % (34.2-44.1); HEMOGLOBIN 10.8 g/dL (12.0-16.0)
[2018-11-22 09:53] VITALS: BP 110/66
[2018-11-22] MEDS ORDERED: ONDANSETRON HCL 4 MG ORAL DISINTEGRATING TAB PO PRN (10:15)
--- NOTE | 2018-11-22 10:36 | NUR ---
DR VEGA OFFICE PREARRANGED FOLLOWING DISCHARGE PLAN OF HOME TO [address] [place] [address] [facility] [place] [address] [facility] CONFIRMED WITH SALMA [phone] DME 3 IN ONE COMMODE AND CPM. PROVIDED BY THERAPY [employer] ROXIE [phone] [facility] WILL CALL [employer] AND DELIVER TOMORROW. I PROVIDED A ROLLING WALKER WITH WHEELS, OBTAINED SIGNATURES AND FILED IN PACU FOR COMPLETION OF PROCESSING. GAVE PT COPIES OF ORDERS TO BE ABLE TO HAVE CURRENT INFORMATION.
--- NOTE | 2018-11-22 11:05 | NUR ---
REMOVED PATIENTS IV. CATHETER TIP INTACT AND PRESSURE DRESSING APPLIED.
--- NOTE | 2018-11-22 11:14 | NUR ---
PATIENT DISCHARGED FROM FACILITY. PATIENT GATHERED ALL PERSONAL BELONGINGS, DISCHARGE INSTRUCTIONS, AND FOLLOW UP INFORMATION. LEFT UNIT IN WHEELCHAIR AND WENT HOME VIA PRIVATE AUTO, NO SIGNS OF DISTRESS WHEN LEAVING FACILITY.
[2018-11-22] MEDS ORDERED: ACETAMINOPHEN 1000 MG/100 ML IV PRN (12:00)
== END 2018-11-22 11:14 | disposition home health service (06) ==
LOC: OR 09:04 → PACU V 11:56 → MED/SURG 12:47
PROVIDERS: ADMIT Specialist; ATTEND Specialist
DX: M17.12 Unilateral primary osteoarthritis, left knee (principal); M81.0 Age-related osteoporosis without current pathological fracture; G20 Parkinson's disease; J45.909 Unspecified asthma, uncomplicated
CPT/HCPCS: 27447; 36415; 71046; 73560; 85014; 85018; 86850; 86900; 86920; 97116; 97162; 97530 ×2; C1713 ×3; G0378 ×2; J0131; J0171; J0690 ×2; J1100; J1170; J1885; J2001; J2250; J2405; J2704; J2795; J3010; J3370; J7030 ×2; J7040; J7050

== ENCOUNTER 2021-10-08 13:52 | Outpatient (RCR) | payer MEDICARE ==
[~2021-10-08 13:52] MED LIST changes: -ROPIVACAINE 246.25 MG, EPINEPHRINE HCL 1:1000 1ML 0.5 MG, CLONIDINE HCL 0.08 MG, KETORO... INJ ONE
== END 2021-10-28 ==
LOC: PT 13:52
PROVIDERS: ATTEND Psychiatry & Neurology Neurology
DX: G20 Parkinson's disease (principal)